=== PATIENT | female | born 1970 | race Caucasian/White ===

== ENCOUNTER → 2025-08-16 | Outpatient (CLI) | payer BC, SELFPAY ==
[2025-08-16 08:38] LABS: Basophils # (Auto) 0.0 Thou/mm3 (0.0-0.2); Basophils % (Auto) 1 % (0-2.5); Eosinophils # (Auto) 0.3 Thou/mm3 (0.0-0.5); Eosinophils % (Auto) 6 % (0-10); Hematocrit 38.6 % (36.0-46.0); Hemoglobin 13.0 g/dL (12.0-16.0); Immature Granulocytes Auto 0.02 Thou/mm3 (0.00-0.00); Lymphocytes # (Auto) 1.7 Thou/mm3 (1.0-4.8); Lymphocytes % (Auto) 31 % (10-50); Mean Corpuscular HGB Conc 33.7 g/dl (31.0-37.0); Mean Corpuscular Hemoglobin 31.1 pg (25.0-35.0); Mean Corpuscular Volume 92 fL (80-100); Monocytes # (Auto) 0.7 Thou/mm3 (0.0-0.8); Monocytes % (Auto) 13 % (0-12); Neutrophils # (Auto) 2.7 Thou/mm3 (1.8-7.7); Neutrophils % (Auto) 49 % (37-80); Nucleated Red Blood Cell # 0.00 Thou/mm3 (0.00-0.00); Nucleated Red Blood Cell % 0 /100 WBC (0); Platelet Count 150 Thou/mm3 (140-440); RDW Standard Deviation 61.8 fL (36.4-46.3); Red Blood Count 4.18 Miln/mm3 (4.00-5.20); White Blood Count 5.4 Thou/mm3 (3.6-11.0)
[2025-08-16 09:04] LABS: T4 (Thyroxine) 12.2 mcg/dL (4.5-10.9)
[2025-08-16 09:09] LABS: Alanine Aminotransferase 424 U/L (10-49); Albumin, Serum 2.5 gm/dL (3.5-5.0); Albumin/Globulin Ratio 0.6 (1.2-2.2); Alkaline Phosphatase 279 U/L (46-116); Anion Gap 5 (7-16); Aspartate Amino Transferase 679 U/L (0-34); BUN/Creatinine Ratio 8 Ratio (12-20); Bilirubin,Total 3.0 mg/dL (0.3-1.2); Blood Urea Nitrogen < 5 mg/dL (9-23); Calcium 8.2 mg/dL (8.3-10.6); Calcium (Corrected) 9.4 mg/dL (8.5-10.1); Carbon Dioxide 22.2 mMol/L (20.0-31.0); Cardiac Risk Estimate 7.0 RATIO (3.7-5.6); Chloride 111 mMol/L (98-107); Cholesterol 140 mg/dL (132-200); Creatinine (Component) 0.6 mg/dL (0.6-1.3); Globulin 4.5 gm/dL (2.3-3.5); Glucose 94 mg/dL (74-106); HDL Cholesterol 20 mg/dL (40-60); LDL Cholesterol,Calculated 97 mg/dL (0-130); Osmolality,Calculated 272 (275-295); Potassium 4.2 mMol/L (3.4-5.1); Sodium 138 mMol/L (136-145); Thyroid Stimulating Hormone < 0.01 uIU/mL (0.55-4.78); Total Protein 7.0 gm/dL (5.7-8.2); Triglycerides 116 mg/dL (30-150); eGFR > 60 See Note
== END | disposition home or self-care (01) ==
PROVIDERS: PCP Family Medicine; Referring Provider Family Medicine; Visit Provider Family Medicine
DX: E03.9 Hypothyroidism, unspecified (principal); R79.9 Abnormal finding of blood chemistry, unspecified
CPT/HCPCS: 36415; 80053; 80061; 84436; 84443; 85025

== ENCOUNTER → 2025-08-26 | Outpatient (CLI) | payer BC, SELFPAY ==
--- NOTE | 2025-08-26 09:57 | XR_ITS ---
Examination: Abdomen sonogram, complete Date and time of exam: August 26, 2025, 10:00 a.m. INDICATIONS: Elevated liver function tests on laboratory examination August 16, 2025. Technique: Multiple real-time grayscale transabdominal sonographic images of the abdomen have been obtained. Findings: Gallbladder sludge Gallbladder wall is thickened 0.6 cm Common bile duct 0.5 cm Pancreatic head 1.7 cm Aorta not enlarged Liver 12.6 cm irregular contour fatty infiltration Normal hepatopetal portal venous flow Patent IVC Right kidney 11.1 cm renal cortex 2.1 cm Left kidney 12.9 cm renal cortex 2.3 cm Moderate renal scar formation Spleen 12.2 cm IMPRESSION: Abnormal thickening of the gallbladder wall 0.6 cm, recommend HIDA scan or MRCP follow-up to exclude acalculous cholecystitis Suspicious for primary pelvis artery disease
[2025-08-26 11:22] LABS: Alanine Aminotransferase 388 U/L (10-49); Albumin, Serum 2.8 gm/dL (3.5-5.0); Alkaline Phosphatase 287 U/L (46-116); Aspartate Amino Transferase 705 U/L (0-34); Bilirubin,Direct 2.5 mg/dL (0.0-0.3); Bilirubin,Total 4.5 mg/dL (0.3-1.2); Lipase 67 U/L (12-53); Total Protein 8.1 gm/dL (5.7-8.2)
[2025-08-26 12:08] LABS: Hepatitis A Antibody IgM Non Reactive (Non React); Hepatitis B Core Antibody IgM Non Reactive (Non React); Hepatitis B Surface Antigen Non Reactive (Non React); Hepatitis C Antibody Non Reactive (Non React)
== END | disposition home or self-care (01) ==
PROVIDERS: PCP Family Medicine; Referring Provider Family Medicine; Visit Provider Radiology Diagnostic Radiology
DX: K82.8 Other specified diseases of gallbladder (principal); R94.5 Abnormal results of liver function studies
CPT/HCPCS: 36415; 76700; 80074; 80076; 83690

== ENCOUNTER → 2025-10-21 | Outpatient (CLI) | payer BC, SELFPAY ==
[2025-10-21 09:21] LABS: Basophils # (Auto) 0.1 Thou/mm3 (0.0-0.2); Basophils % (Auto) 1 % (0-2.5); Eosinophils # (Auto) 0.1 Thou/mm3 (0.0-0.5); Eosinophils % (Auto) 1 % (0-10); Hematocrit 38.6 % (36.0-46.0); Hemoglobin 12.9 g/dL (12.0-16.0); Immature Granulocytes Auto 0.04 Thou/mm3 (0.00-0.00); Lymphocytes # (Auto) 2.1 Thou/mm3 (1.0-4.8); Lymphocytes % (Auto) 19 % (10-50); Mean Corpuscular HGB Conc 33.4 g/dl (31.0-37.0); Mean Corpuscular Hemoglobin 30.9 pg (25.0-35.0); Mean Corpuscular Volume 93 fL (80-100); Monocytes # (Auto) 0.8 Thou/mm3 (0.0-0.8); Monocytes % (Auto) 8 % (0-12); Neutrophils # (Auto) 7.8 Thou/mm3 (1.8-7.7); Neutrophils % (Auto) 71 % (37-80); Nucleated Red Blood Cell # 0.00 Thou/mm3 (0.00-0.00); Nucleated Red Blood Cell % 0 /100 WBC (0); Platelet Count 139 Thou/mm3 (140-440); RDW Standard Deviation 59.7 fL (36.4-46.3); Red Blood Count 4.17 Miln/mm3 (4.00-5.20); White Blood Count 11.0 Thou/mm3 (3.6-11.0)
[2025-10-21 09:31] LABS: Alanine Aminotransferase 266 U/L (10-49); Albumin, Serum 2.8 gm/dL (3.5-5.0); Albumin/Globulin Ratio 0.6 (1.2-2.2); Alkaline Phosphatase 293 U/L (46-116); Anion Gap 8 (7-16); Aspartate Amino Transferase 337 U/L (0-34); BUN/Creatinine Ratio 10 Ratio (12-20); Bilirubin,Total 1.9 mg/dL (0.3-1.2); Blood Urea Nitrogen 5 mg/dL (9-23); Calcium 8.4 mg/dL (8.3-10.6); Calcium (Corrected) 9.4 mg/dL (8.5-10.1); Carbon Dioxide 21.6 mMol/L (20.0-31.0); Chloride 110 mMol/L (98-107); Creatinine (Component) 0.5 mg/dL (0.6-1.3); Globulin 4.7 gm/dL (2.3-3.5); Glucose 99 mg/dL (74-106); Osmolality,Calculated 276 (275-295); Potassium 4.0 mMol/L (3.4-5.1); Sodium 140 mMol/L (136-145); Total Protein 7.5 gm/dL (5.7-8.2); eGFR > 60 See Note
== END | disposition home or self-care (01) ==
LOC: COPL 08:22
PROVIDERS: PCP Family Medicine; Referring Provider Specialist; Visit Provider Specialist
DX: E78.9 Disorder of lipoprotein metabolism, unspecified (principal)
CPT/HCPCS: 36415; 80053; 85025